=== PATIENT | female | born 1975 | race American Indian/Alaskan Native ===

== ENCOUNTER 2017-05-08 17:19 | Emergency (ER) | payer OTHER ==
[2017-05-08] MEDS ORDERED: NORCO 5/325 PO ONE (19:14)
--- NOTE | 2017-05-08 19:14 | Emergency Department Report ---
Chief Complaint: Dental/Oral Stated Complaint: BROOKEN TOOTH Time Seen by Provider: 05/08/17 19:13 - HPI History of Present Illness: He is a 42-year-old Female who is presenting with right-sided tooth pain and facial swelling. Patient has had pain for the last several days there appears to be an abscess in the right upper gums near the molars with pain on palpation of the teeth - Exam Vital Signs: Vital Signs 05/08/17 17:20 Temperature 98.9 F Pulse Rate 88 Respiratory 18 Rate Blood Pressure 129/92 O2 Sat by Pulse 99 Oximetry MSE screening note: Focused history and physical exam performed. Due to findings the following was ordered: ED Disposition for MSE Condition: Stable Referrals: PRIMARY CARE, [Primary Care Provider] - 3-5 Days
[2017-05-08] MEDS ORDERED: VEETIDS PO ONE (19:15)
[2017-05-08] MEDS ORDERED: MOTRIN PO ONE (19:15)
--- NOTE | 2017-05-08 19:42 | Emergency Department Report ---
ED ENT HPI - General Chief complaint: Dental/Oral Stated complaint: BROOKEN TOOTH Time Seen by Provider: 05/08/17 19:13 Source: patient Mode of arrival: Ambulatory Limitations: No Limitations - History of Present Illness Initial comments: tootache x 2 week hx of infected dental carries state gum swelling pain with hot and cold stimuli, pt is tolerating po intake without symptoms MD complaint: tooth pain Onset/Timin -: Gradual, week(s) Location: tooth # Severity scale (0 -10): 4 Quality: aching Consistency: constant Improves with: none Worsens with: other (hot and cold sensation) Context- Dental: history of dental caries Associated Symptoms: gum swelling, toothache. denies: fever, pain with swallowing, sore throat, tinnitus, rhinorrhea - Related Data Previous Rx's Medication Instructions Recorded Last Taken Type Penicillin Vk [Veetids TAB] 250 mg PO QID #40 tablet 05/08/17 Unknown Rx traMADol [Ultram 50 MG tab] 50 mg PO Q6HR PRN #20 tablet 05/08/17 Unknown Rx Allergies Allergy/AdvReac Type Severity Reaction Status Date / Time No Known Allergies Allergy Unverified 05/08/17 17:20 ED Dental HPI - General Chief complaint: Dental/Oral Stated complaint: BROOKEN TOOTH Time Seen by Provider: 05/08/17 19:13 Source: patient Mode of arrival: Ambulatory Limitations: No Limitations - Related Data Previous Rx's Medication Instructions Recorded Last Taken Type Penicillin Vk [Veetids TAB] 250 mg PO QID #40 tablet 05/08/17 Unknown Rx traMADol [Ultram 50 MG tab] 50 mg PO Q6HR PRN #20 tablet 05/08/17 Unknown Rx Allergies Allergy/AdvReac Type Severity Reaction Status Date / Time No Known Allergies Allergy Unverified 05/08/17 17:20 ED Review of Systems ROS: Stated complaint: BROOKEN TOOTH Other details as noted in HPI Constitutional: denies: chills, fever Eyes: denies: eye pain, eye discharge, vision change ENT: dental pain Respiratory: denies: cough, shortness of breath, wheezing Cardiovascular: denies: chest pain, palpitations Endocrine: no symptoms reported Gastrointestinal: denies: abdominal pain, nausea, diarrhea Genitourinary: denies: urgency, dysuria, discharge Musculoskeletal: denies: back pain, joint swelling, arthralgia Skin: denies: rash, lesions Neurological: denies: headache, weakness, paresthesias Psychiatric: denies: anxiety, depression Hematological/Lymphatic: denies: easy bleeding, easy bruising ED Past Medical Hx - Past Medical History Previous Medical History?: No - Surgical History Past Surgical History?: No - Social History Smoking Status: Never Smoker Substance Use Type: None - Medications Home Medications: Home Medications Medication Instructions Recorded Confirmed Last Taken Type Penicillin Vk [Veetids TAB] 250 mg PO QID #40 tablet 05/08/17 Unknown Rx traMADol [Ultram 50 MG tab] 50 mg PO Q6HR PRN #20 tablet 05/08/17 Unknown Rx ED Physical Exam - General Limitations: No Limitations General appearance: alert, in no apparent distress - Head Head exam: Present: atraumatic, normocephalic - Eye Eye exam: Present: normal appearance - Expanded ENT Exam Expanded Ear exam: Present: normal external inspection Mouth exam: Present: normal external inspection Teeth exam: Present: dental caries, dental tenderness # (29 mild gum swell no trismus uvula midline no stidor no ear pain no facial pain ) Throat exam: Negative: tonsillomegaly - Neck Neck exam: Present: normal inspection, full ROM. Absent: lymphadenopathy, thyromegaly - Respiratory Respiratory exam: Present: normal lung sounds bilaterally. Absent: respiratory distress - Cardiovascular Cardiovascular Exam: Present: regular rate, normal rhythm. Absent: systolic murmur, diastolic murmur, rubs, gallop - GI/Abdominal GI/Abdominal exam: Present: soft, normal bowel sounds - Extremities Exam Extremities exam: Present: normal inspection - Back Exam Back exam: Present: normal inspection - Neurological Exam Neurological exam: Present: alert, oriented X3 - Psychiatric Psychiatric exam: Present: normal affect, normal mood ED Course Vital Signs 05/08/17 05/08/17 17:20 19:36 Temperature 98.9 F Pulse Rate 88 Respiratory 18 18 Rate Blood Pressure 129/92 O2 Sat by Pulse 99 Oximetry ED Medical Decision Making - Medical Decision Making pt presensts for recurrent infected dental carries with small abscess no facial swelling no trismus mild gum swelling pt is tolerating po intake without difficulty, plan, pcn vk, tramdol, follow up dentist will call tomorrow to setu appointment, pt verbalize agreement understanding of discharge plan. Critical care attestation.: If time is entered above; I have spent that time in minutes in the direct care of this critically ill patient, excluding procedure time. ED Disposition Clinical Impression: Dental abscess, Infected dental carries Disposition: TO HOME OR SELFCARE Is pt being admited?: No Does the pt Need Aspirin: No Condition: Good Instructions: Dental Caries (ED), Dental Abscess (ED) Additional Instructions: [facility] [phone] Prescriptions: Penicillin Vk [Veetids TAB] 250 mg PO QID #40 tablet traMADol [Ultram 50 MG tab] 50 mg PO Q6HR PRN #20 tablet PRN Reason: Pain Referrals: PRIMARY CARE,MD [Primary Care Provider] - 3-5 Days Forms: Work/School Release Form(ED) Time of Disposition: 19:44
[2017-05-08 19:53] VITALS: BP 157/85
== END 2017-05-08 20:00 | disposition home or self-care (01) ==
LOC: ED 17:19
DX: K04.7 Periapical abscess without sinus (principal)
CPT/HCPCS: 99282

== ENCOUNTER 2017-06-29 23:04 | Emergency (ER) | payer SELFPAY ==
[2017-06-29 23:28] VITALS: BP 114/74
[2017-06-29] MEDS ORDERED: PROVENTIL IH ONE (23:28)
[2017-06-29] MEDS ORDERED: TORADOL IM ONE (23:30)
--- NOTE | 2017-06-30 00:30 | XRay Report ---
FINAL REPORT EXAM: XR CHEST ROUTINE 2V HISTORY: cough TECHNIQUE: PA and lateral views of the chest were submitted. FINDINGS: The heart size and mediastinum appear normal. The lungs are clear. Pleural fluid is not seen. The bones and soft tissues are well maintained. IMPRESSION: No active chest disease.
[2017-06-30] MEDS ORDERED: ZOFRAN IM ONE (03:45)
[2017-06-30] MEDS ORDERED: NACL 0.9% 1000 ML 1,000 ML ONE (04:01)
[2017-06-30] MEDS ORDERED: NACL 0.9% 1000 ML 1,000 ML IV ONE (04:20)
[2017-06-30 04:24] LABS: Basophils % (Auto) 0.5 % (0.0-1.8); Eosinophils # (Auto) 0.2 K/mm3 (0.0-0.4); Eosinophils % (Auto) 3.3 % (0.0-4.3); Hematocrit 33.3 % (30.3-42.9); Hemoglobin 10.8 gm/dl (10.1-14.3); Lymphocytes # (Auto) 2.6 K/mm3 (1.2-5.4); Lymphocytes % (Auto) 36.8 % (13.4-35.0); Mean Corpuscular HGB Conc 32 % (30-34); Mean Corpuscular Volume 78 fl (79-97); Monocytes # (Auto) 0.4 K/mm3 (0.0-0.8); Monocytes % (Auto) 6.3 % (0.0-7.3); Platelet Count 274 K/mm3 (140-440); Red Blood Count 4.25 M/mm3 (3.65-5.03); Red Cell Distribution Width 16.3 % (13.2-15.2)
[2017-06-30 04:27] LABS: Mean Corpuscular Hemoglobin 25 pg (28-32)
[2017-06-30 04:43] LABS: BUN/Creatinine Ratio 18; Blood Urea Nitrogen 11 mg/dL (7-17); Calcium 9.3 mg/dL (8.4-10.2); Hemolysis Index 10
[2017-06-30 14:42] LABS: Bilirubin,Urine NEG (Negative); Blood,Urine LG (Negative); Calcium Oxalate Crystals,Urine 1+; Color,Urine Yellow (Yellow); Mucus,Urine 3+ /HPF; Nitrite,Urine NEG (Negative); Urobilinogen,Urine < 2.0 mg/dL (<2.0)
== END 2017-06-30 07:45 | disposition left against medical advice (07) ==
LOC: ED 23:04
DX: R07.9 Chest pain, unspecified (principal); R53.1 Weakness; Z53.21 Procedure and treatment not carried out due to patient leaving prior to being seen by health care provider
CPT/HCPCS: 36415; 71046; 80048; 81001; 85025; 87400; 93005; 93010; J1885; J2405; J7030

== ENCOUNTER 2017-10-17 07:42 | Emergency (ER) | payer SELFPAY ==
--- NOTE | 2017-10-17 08:21 | Emergency Department Report ---
HPI - General Chief Complaint: Sore Throat Time Seen by Provider: 10/17/17 08:20 - HPI HPI: Patient here reports that she is sore throats, fever and chills, swelling to her neck on both sides. Positive headache frontally. This has been going on for 2 days. Denies any cough, difficulty breathing, drooling, shortness of breath or chest pain. No dizziness or blurred vision. Pain is worse with swallowing and. Pain is constant. Unknown cause. No alleviating factors. Pain is 5 out of 10. Pain is achy. Denies any exposure to anyone with similar incidents. She states that she was sent home from work yesterday. No medication taken. ED Past Medical Hx - Past Medical History Previous Medical History?: No - Surgical History Past Surgical History?: Yes Additional Surgical History: Tubal Ligation - Family History Family history: hypertension - Social History Smoking Status: Never Smoker Substance Use Type: None Other Social History: Single and employed - Medications Home Medications: Home Medications Medication Instructions Recorded Confirmed Last Taken Type Penicillin Vk [Veetids TAB] 250 mg PO QID #40 tablet 05/08/17 Unknown Rx traMADol [Ultram 50 MG tab] 50 mg PO Q6HR PRN #20 tablet 05/08/17 Unknown Rx Ibuprofen [Motrin 800 MG tab] 800 mg PO Q8H PRN #15 tablet 10/17/17 Unknown Rx ED Review of Systems ROS: Stated complaint: SORE THROAT Other details as noted in HPI Constitutional: chills, fever, malaise Eyes: denies: eye pain, eye discharge, vision change ENT: throat pain. denies: ear pain, dental pain, hearing loss, epistaxis, congestion Respiratory: denies: cough, shortness of breath, SOB with exertion, SOB at rest , stridor, wheezing Cardiovascular: denies: chest pain, palpitations, edema, syncope Gastrointestinal: denies: abdominal pain, nausea, vomiting, diarrhea Musculoskeletal: denies: back pain, joint swelling, arthralgia Skin: denies: rash, lesions, pruritus Neurological: headache. denies: weakness, numbness, paresthesias, abnormal gait , vertigo Hematological/Lymphatic: swollen glands Physical Exam - Physical Exam Vital Signs: Vital Signs 10/17/17 08:03 Temperature 100.2 F H Pulse Rate 110 H Blood Pressure 120/78 O2 Sat by Pulse 98 Oximetry General: This is a 42-year-old female well-nourished well-developed in no acute distress. Physical Exam: Head: Normocephalic, atraumatic, no abrasion, no bruising and no contusion. Eyes: Biateral pupils equal and reactive to light, bilateral EOM intact.. Bilateral conjunctival and sclera without injection, normal accommodation. No nystagmus Mouth: Mucosa moist, no drooling, positive pharyngeal exudate or erythema. No peritonsillar abscesses. Uvula is midline and oral airways patent. Speech is clear Ears: Bilateral TMs pearly briseno ,Bilateral EAC without any redness swelling or drainage. No mastoid bone tenderness Nose: Bilateral nasal mucosa normal ,Maxillary and frontal sinuses non-tender to palpate. Neck: Supple, positive anterior chain Cervical adenopathy, full range of motion and no C-spine tenderness. No swelling or tracheal deviation normal reflexes Cardiovascular: S1, S2. Tachycardic at 110 ,Regular rhythm. No murmur. Capillary refill is less then 3 seconds. Lungs: Clear to auscultate bilaterally. No rhonchi, wheezes or rales. No chest wall tenderness. No chest contusion. No bruising to chest. Abdomen: Non-tender to palpate in all quadrants, no guarding or rebound tenderness, positive bowel sounds in all quadrants. Extremities: No clubbing, cyanosis or edema. +2 pulses. No neurovascular compromise Skin: Clean, dry and intact. No rash or lesions. Neurological: GCS at 15, Pt is alert and oriented 3 speech is clear . Normal gait. Psych: Normal mood and behavior ED Course Vital Signs 10/17/17 08:03 Temperature 100.2 F H Pulse Rate 110 H Blood Pressure 120/78 O2 Sat by Pulse 98 Oximetry Vital Signs 10/17/17 10/17/17 08:03 08:51 Temperature 100.2 F H 100.4 F H Pulse Rate 110 H 107 H Respiratory 20 Rate Blood Pressure 120/78 Blood Pressure 116/81 [Left] O2 Sat by Pulse 98 100 Oximetry - Reevaluation(s) Reevaluation #1: 10/17/17 08:51 Patient received Bicillin 1.2 million units IM in emergency room to Street exudative pharyngitis.. She also received Motrin 800 mg one tablet by mouth and Reynolds 7.5/325 mg one tablet by mouth for pain which relieved her pain. Patient also given Deltasone 6 mgo by mouth for mild swelling to oropharynx. Patient is stable feeling better. Able to tolerate liquids without any difficulties. ED Medical Decision Making - Medical Decision Making ED course: Diagnosis: 1: Exudative pharyngitis- siore throat better 2:fever in adults- stable Headache-Resolved -Basis since her criteria patient with oropharynx, erythema with exudate, enlarge cervical lymp nodes, headache and fever with absence of cough patient with strep. She was treated with Bicillin LA 1.2 million units emergency room times one dose without any adverse reaction. Motrin 800 mg by mouth and Reynolds 7.5/325 mg by mouth given for pain with subsequent pain. Patient was also given Deltasone 60 mg by mouth for mild swelling to her throat. Patient states that she is feeling better overall. -Discharged prescription for Motrin -Instructed her to gargle warm salt water Patient discharged from emergency room in stable condition with family with prescription for Motrin and to follow up with her primary care physician on Saturday. She was understanding of discharge diagnosis, instruction instruction and treatment plan. - Differential Diagnosis [employer], exudative pharyngitis, allergic rhinitis, URI, sinusitis Critical care attestation.: If time is entered above; I have spent that time in minutes in the direct care of this critically ill patient, excluding procedure time. ED Disposition Clinical Impression: Exudative pharyngitis, Fever in adult, Enlarged lymph node in neck Disposition: DC-01 TO HOME OR SELFCARE Is pt being admited?: No Does the pt Need Aspirin: No Condition: Stable Instructions: Strep Throat (ED), Fever in Adults (ED), Lymphadenopathy (ED) Additional Instructions: You're given Bicillin injection which is a long acting penicillin. Usually antibiotic starts taking effect and 4 days. You will continue to have sore throat so take Motrin as prescribed and gargle warm salt water and he should see your sore throat gradually resolving over 4 days. Motrin will also help with fever Increase her fluid intake and avoid spicy food and hot beverages Follow-up the primary care physician in 5 days Prescriptions: Ibuprofen [Motrin 800 MG tab] 800 mg PO Q8H PRN #15 tablet PRN Reason: sore throat and fever Referrals: PRIMARY CARE, [Primary Care Provider] - 10/22/17 Forms: Accompanied Note, Work/School Release Form(ED)
[2017-10-17] MEDS ORDERED: NORCO 7.5/325 PO ONE (08:24)
[2017-10-17] MEDS ORDERED: MOTRIN PO ONE (08:24)
[2017-10-17] MEDS ORDERED: DELTASONE PO ONE (08:24)
[2017-10-17] MEDS ORDERED: BICILLIN L-A IM ONE (08:25)
[2017-10-17 08:52] VITALS: BP 116/81
== END 2017-10-17 09:15 | disposition home or self-care (01) ==
LOC: ED 07:42
DX: J02.9 Acute pharyngitis, unspecified (principal); R59.0 Localized enlarged lymph nodes
CPT/HCPCS: 96372; 99282; J0561; J7512

== ENCOUNTER 2018-01-23 11:44 | Emergency (ER) | payer OTHER ==
[2018-01-23 11:51] VITALS: BP 129/81
--- NOTE | 2018-01-23 12:53 | Emergency Department Report ---
ED Abdominal Pain HPI - General Chief Complaint: Abdominal Pain Stated Complaint: ABD PAIN Time Seen by Provider: 01/23/18 12:20 Source: family, RN/MD Mode of arrival: Ambulatory Limitations: No Limitations - History of Present Illness Initial Comments: Patient reports lower abdominal pain with some nausea and that she has been seen in [place] last week and had CT scan with IV contrast and they told her that everything was fine. He will have an abdominal pain and nausea with no relief with [id number] medication. She denies any vomiting, vaginal bleeding or discharge. Denies any urinary symptoms. Negative back pain. Last menstrual cycle was 01/13/2018. Pain is 8/10 in cramp and no alleviating or exacerbating factors. Denies any diarrhea or constipation. Patient says she does not have a primary care doctor because she just moved to town and his churches trying to help her get some insurance. MD Complaint: abdominal pain (nausea alone) Onset/Timin -: week(s) Location: suprapubic Radiation: none Migration to: no migration Severity: severe Severity scale (0 -10): 8 Quality: cramping Consistency: intermittent Worsens With: nothing Context: other (unknown) Associated Symptoms: nausea. denies: vomiting, diarrhea, fever, chills, constipation, dysuria, hematemesis, hematochezia, melena, hematuria, anorexia, syncope - Related Data LMP Date: 01/13/18 Previous Rx's Medication Instructions Recorded Last Taken Type Penicillin Vk [Veetids TAB] 250 mg PO QID #40 tablet 05/08/17 Unknown Rx traMADol [Ultram 50 MG tab] 50 mg PO Q6HR PRN #20 tablet 05/08/17 Unknown Rx Ibuprofen [Motrin 800 MG tab] 800 mg PO Q8H PRN #15 tablet 10/17/17 Unknown Rx Naproxen [Naprosyn] 500 mg PO Q12H PRN #20 tablet 01/23/18 Unknown Rx Ondansetron [Zofran Odt] 4 mg PO Q8H PRN #20 tab.rapdis 01/23/18 Unknown Rx Allergies Allergy/AdvReac Type Severity Reaction Status Date / Time No Known Allergies Allergy Unverified 05/08/17 17:20 ED Review of Systems ROS: Stated complaint: ABD PAIN Other details as noted in HPI Constitutional: denies: chills, fever Eyes: denies: eye discharge ENT: denies: ear pain, throat pain, congestion Respiratory: denies: cough, shortness of breath, SOB with exertion, SOB at rest , stridor, wheezing Cardiovascular: denies: chest pain, palpitations, edema, syncope Gastrointestinal: abdominal pain, nausea. denies: vomiting, diarrhea, constipation, hematemesis, melena, hematochezia Genitourinary: denies: urgency, dysuria, frequency, hematuria, discharge, abnormal menses, dyspareunia Musculoskeletal: denies: back pain, joint swelling, arthralgia, myalgia Skin: denies: rash, lesions Neurological: denies: headache, weakness ED Past Medical Hx - Past Medical History Previous Medical History?: No - Surgical History Past Surgical History?: Yes Additional Surgical History: Tubal Ligation - Family History Family history: hypertension - Social History Smoking Status: Never Smoker Substance Use Type: Marijuana - Medications Home Medications: Home Medications Medication Instructions Recorded Confirmed Last Taken Type Penicillin Vk [Veetids TAB] 250 mg PO QID #40 tablet 05/08/17 Unknown Rx traMADol [Ultram 50 MG tab] 50 mg PO Q6HR PRN #20 tablet 05/08/17 Unknown Rx Ibuprofen [Motrin 800 MG tab] 800 mg PO Q8H PRN #15 tablet 10/17/17 Unknown Rx Naproxen [Naprosyn] 500 mg PO Q12H PRN #20 tablet 01/23/18 Unknown Rx Ondansetron [Zofran Odt] 4 mg PO Q8H PRN #20 tab.rapdis 01/23/18 Unknown Rx ED Physical Exam - General Limitations: No Limitations General appearance: alert, in no apparent distress - Head Head exam: Present: atraumatic, normocephalic, normal inspection - Eye Eye exam: Present: normal appearance, PERRL, EOMI Pupils: Present: normal accommodation - ENT ENT exam: Present: normal exam, normal orophraynx, mucous membranes moist, TM's normal bilaterally, normal external ear exam - Neck Neck exam: Present: normal inspection, full ROM. Absent: tenderness, lymphadenopathy - Respiratory Respiratory exam: Present: normal lung sounds bilaterally. Absent: respiratory distress, chest wall tenderness - Cardiovascular Cardiovascular Exam: Present: regular rate, normal rhythm, normal heart sounds. Absent: systolic murmur, diastolic murmur - GI/Abdominal GI/Abdominal exam: Present: soft, tenderness (minimal suprapubic tenderness), normal bowel sounds. Absent: distended, guarding, rebound, rigid, organomegaly , mass - Extremities Exam Extremities exam: Present: normal inspection, full ROM, normal capillary refill , other (No cce. + 2 pulses in all extremities, no neurovascular compromise). Absent: tenderness, pedal edema, joint swelling, calf tenderness - Back Exam Back exam: Present: normal inspection, full ROM, other (ambulates without any difficulties). Absent: tenderness, CVA tenderness (R), CVA tenderness (L), muscle spasm, paraspinal tenderness, vertebral tenderness, rash noted - Neurological Exam Neurological exam: Present: alert, oriented X3, normal gait - Psychiatric Psychiatric exam: Present: normal affect, normal mood - Skin Skin exam: Present: warm, dry, intact, normal color. Absent: rash ED Course Vital Signs 01/23/18 01/23/18 01/23/18 11:48 13:07 13:37 Temperature 97.9 F Pulse Rate 69 Respiratory 16 18 18 Rate Blood Pressure 129/81 O2 Sat by Pulse 100 Oximetry - Reevaluation(s) Reevaluation #1: 01/23/18 16:13 Patient was given Toradol 30 mg IM and Zofran 8 mg ODT which relieved her nausea and abdominal cramping. She was found to be eating chips and other cookies and drinking soda in the room. ED Medical Decision Making - Lab Data Result diagrams: 01/23/18 12:57 01/23/18 12:57 Lab Results 01/23/18 01/23/18 01/23/18 Range/Units 12:30 12:57 12:57 WBC 6.5 (4.5-11.0) K/mm3 RBC 4.60 (3.65-5.03) M/mm3 Hgb 11.2 (10.1-14.3) gm/dl Hct 35.0 (30.3-42.9) % MCV 76 L (79-97) fl MCH 24 L (28-32) pg MCHC 32 (30-34) % RDW 17.5 H (13.2-15.2) % Plt Count 314 (140-440) K/mm3 Lymph % (Auto) 36.3 H (13.4-35.0) % [place] % (Auto) 8.3 H (0.0-7.3) % Eos % (Auto) 1.7 (0.0-4.3) % Baso % (Auto) 0.6 (0.0-1.8) % Lymph # 2.4 (1.2-5.4) K/mm3 [place] # 0.5 (0.0-0.8) K/mm3 Eos # 0.1 (0.0-0.4) K/mm3 Baso # 0.0 (0.0-0.1) K/mm3 Seg Neutrophils % 53.1 (40.0-70.0) % Seg Neutrophils # 3.4 (1.8-7.7) K/mm3 Sodium 139 (137-145) mmol/L Potassium 3.9 (3.6-5.0) mmol/L Chloride 104.9 (98-107) mmol/L Carbon Dioxide 22 (22-30) mmol/L Anion Gap 16 mmol/L BUN 8 (7-17) mg/dL Creatinine 0.6 L (0.7-1.2) mg/dL Estimated GFR > 60 ml/min BUN/Creatinine Ratio 13 % Glucose 78 (65-100) mg/dL Calcium 9.1 (8.4-10.2) mg/dL Total Bilirubin 0.20 (0.1-1.2) mg/dL AST 19 (5-40) units/L ALT 16 (7-56) units/L Alkaline Phosphatase 46 (35-129) units/L Total Protein 7.0 (6.3-8.2) g/dL Albumin 4.2 (3.9-5) g/dL Albumin/Globulin Ratio 1.5 % Lipase 36 (13-60) units/L Urine Color Yellow (Yellow) Urine Turbidity Clear (Clear) Urine pH 6.0 (5.0-7.0) Ur Specific [place] 1.023 (1.003-1.030) Urine Protein <15 mg/dl (Negative) mg/dL Urine Glucose (UA) Neg (Negative) mg/dL Urine Ketones Neg (Negative) mg/dL Urine Blood Neg (Negative) Urine Nitrite Neg (Negative) Urine Bilirubin Neg (Negative) Urine Urobilinogen < 2.0 (<2.0) mg/dL Ur Leukocyte Esterase Neg (Negative) Urine WBC (Auto) 1.0 (0.0-6.0) /HPF Urine RBC (Auto) 5.0 (0.0-6.0) /HPF U Epithel Cells (Auto) 3.0 (0-13.0) /HPF Urine Mucus Few /HPF Urine HCG, Qual Negative (Negative) - Radiology Data Radiology results: report reviewed Ultrasound transabdominal, transvaginal and pelvic dictated by radiologist and report reviewed by myself. Please see details in report below. Patient: CORRIE AHN MR#: [id number] : 1975 Acct:[id number] Age/Sex: 42 / F ADM Date: 01/23/18 Loc: ED Attending Dr: Ordering Physician: JUANITA ARAUJO Date of Service: 01/23/18 Procedure(s): US transvaginal Accession Number(s): [id number] cc: JUANITA ARAUJO ULTRASOUND PELVIC COMPLETE ULTRASOUND TRANSVAGINAL HISTORY: Pelvic pain. COMPARISON: None. TECHNIQUE: Transabdominal and transvaginal ultrasound with color doppler interrogation. FINDINGS: Uterus: There is. The uterus measures 11 x 5 x 8 cm. A right lateral wall fibroid measures 3.0 cm. A left lateral wall fibroid measures 3.6 cm. Normal cervix. Endometrium: The endometrial stripe measures 1.5 cm. Right ovary: Normal. Left ovary: Normal. No pelvic fluid or mass is identified. Normal color doppler interrogation. IMPRESSION: Uterine fibroid disease. The endometrium measures 15 mm. Transcribed By: TTR Dictated By: SALVADOR ROJAS JR, MD Electronically Authenticated By: SALVADOR ROJAS JR, MD Signed Date/Time: 01/23/18 1509 DD/ 1507 TD/TT: 01/23/18 1509 Patient: CORRIE AHN MR#: [id number] : 1975 Acct:[id number] Age/Sex: 42 / F ADM Date: 01/23/18 Loc: ED Attending Dr: Ordering Physician: JUANITA ARAUJO Date of Service: 01/23/18 Procedure(s): US pelvic complete Accession Number(s): [id number] cc: JUANITA ARAUJO ULTRASOUND PELVIC COMPLETE ULTRASOUND TRANSVAGINAL HISTORY: Pelvic pain. COMPARISON: None. TECHNIQUE: Transabdominal and transvaginal ultrasound with color doppler interrogation. FINDINGS: Uterus: There is. The uterus measures 11 x 5 x 8 cm. A right lateral wall fibroid measures 3.0 cm. A left lateral wall fibroid measures 3.6 cm. Normal cervix. Endometrium: The endometrial stripe measures 1.5 cm. Right ovary: Normal. Left ovary: Normal. No pelvic fluid or mass is identified. Normal color doppler interrogation. IMPRESSION: Uterine fibroid disease. The endometrium measures 15 mm. Transcribed By: TTR Dictated By: SALVADOR ROJAS JR, MD Electronically Authenticated By: SALVADOR ROJAS JR, MD Signed Date/Time: 01/23/18 150 DD/ 1507 TD/TT: 01/23/18 1509 Patient: CORRIE AHN MR#: [id number] : 1975 Acct:[id number] Age/Sex: 42 / F ADM Date: 01/23/18 Loc: ED Attending Dr: Ordering Physician: JUANITA ARAUJO Date of Service: 01/23/18 Procedure(s): US abdomen complete Accession Number(s): [id number] cc: JUANITA ARAUJO ULTRASOUND ABDOMEN COMPLETE: TECHNIQUE: Transabdominal ultrasound with color Doppler interrogation. HISTORY: abdominal pain. COMPARISON: none. FINDINGS: LIVER: Normal. BILIARY SYSTEM: Normal. PANCREAS: Normal. SPLEEN: Normal. KIDNEYS: Normal. AORTA/IVC: Normal. ASCITES: None. IMPRESSION: Unremarkable exam. Transcribed By: TTR Dictated By: SALVADOR ROJAS JR, MD Electronically Authenticated By: SALVADOR ROJAS JR, MD Signed Date/Time: 01/23/18 151 DD/ 1510 TD/TT: 01/23/18 151 - Medical Decision Making This is a 42-year-old female here report abdominal pain that has been ongoing. She says she had a CT scan with IV contrast in [place] one week ago and they did not find anything. She says she is still having abdominal pain and a little bit of nausea. She is not having any vaginal bleeding or urinary symptoms. Patient was seen and examined by myself and physical exam is normal except she has mild tenderness to her pelvic area on both sides. All other physical findings are normal. Patient had ultrasound of abdomen, complete which was normal finding in and she had ultrasound pelvic completed and transvaginal ultrasound with normal ovaries and she has fibroid disease. CBC stable except for minor and CMP is stable and urinalysis normal with negative test. I discussed ultrasound and CBC and other laboratory results the patient and she voiced understanding. Diagnosis and treatment plan discussed that she was understanding. Patient was given 1 L of normal saline in the emergency room, Toradol 30 mg IM and Zofran 8 mg ODT which relieved her abdominal pain and nausea has been relief. Patient is able to tolerate oral ice water in the emergency room. I discussed the patient that she needs to follow up with OB/ CVICU RN and she says she does not have any insurance I told her to follow up with Dr. Salvador Woo at [facility] and also primary care at [facility]. Patient discharged home with prescription for naproxen and Zofran for pain and nausea. Vital signs are stable she is afebrile and pain is controlled. Critical care attestation.: If time is entered above; I have spent that time in minutes in the direct care of this critically ill patient, excluding procedure time. ED Disposition Clinical Impression: Nausea alone Abdominal pain Qualifiers: Abdominal location: lower abdomen, unspecified Qualified Code(s): R10.30 - Lower abdominal pain, unspecified Uterine fibroid Qualifiers: Uterine leiomyoma location: unspecified location Qualified Code(s): D25.9 - Leiomyoma of uterus, unspecified Disposition: DC-01 TO HOME OR SELFCARE Is pt being admited?: No Does the pt Need Aspirin: No Condition: Stable Instructions: Uterine Fibroids (ED), Acute Nausea and Vomiting (ED), Abdominal Pain (ED) Additional Instructions: Please follow up with outside Medical Center for [facility] and primary care visits. Call tomorrow to schedule an appointment for well patient visit and also for Pap smear. Take medication for nausea and for pelvic pain as prescribed Increase your fluid intake. If you develop vaginal bleeding in and increase in abdominal pain with nausea and vomiting, return to the emergency room otherwise see [facility] as discussed Prescriptions: Naproxen [Naprosyn] 500 mg PO Q12H PRN #20 tablet PRN Reason: abdominal cramping Ondansetron [Zofran Odt] 4 mg PO Q8H PRN #20 tab.rapdis PRN Reason: Nausea And Vomiting Referrals: PRIMARY CARE, [Primary Care Provider] - 3-5 Days [facility] [Outside] - 3-5 Days SALVADOR WOO MD [Staff Physician] - 3-5 Days Forms: Work/School Release Form(ED)
[2018-01-23 12:54] LABS: Bilirubin,Urine NEG (Negative); Blood,Urine NEG (Negative); Color,Urine Yellow (Yellow); HCG Qualitative,Urine Negative (Negative); Mucus,Urine FEW /HPF; Protein,Urine <15 mg/dL mg/dL (Negative); Urobilinogen,Urine < 2.0 mg/dL (<2.0)
[2018-01-23] MEDS ORDERED: TORADOL IM ONE (12:54)
[2018-01-23] MEDS ORDERED: ZOFRAN ODT PO ONE (12:54)
[2018-01-23 13:18] LABS: Basophils % (Auto) 0.6 % (0.0-1.8); Eosinophils # (Auto) 0.1 K/mm3 (0.0-0.4); Eosinophils % (Auto) 1.7 % (0.0-4.3); Hemoglobin 11.2 gm/dl (10.1-14.3); Lymphocytes # (Auto) 2.4 K/mm3 (1.2-5.4); Lymphocytes % (Auto) 36.3 % (13.4-35.0); Mean Corpuscular HGB Conc 32 % (30-34); Mean Corpuscular Volume 76 fl (79-97); Monocytes # (Auto) 0.5 K/mm3 (0.0-0.8); Monocytes % (Auto) 8.3 % (0.0-7.3); Platelet Count 314 K/mm3 (140-440); Red Cell Distribution Width 17.5 % (13.2-15.2)
[2018-01-23] MEDS ORDERED: NACL 0.9% 1000 ML 1,000 ML IV ONE (13:18)
[2018-01-23 13:21] LABS: Mean Corpuscular Hemoglobin 24 pg (28-32)
[2018-01-23 13:44] LABS: Alanine Aminotransferase 16 units/L (7-56); Albumin 4.2 g/dL (3.9-5); BUN/Creatinine Ratio 13; Blood Urea Nitrogen 8 mg/dL (7-17); Calcium 9.1 mg/dL (8.4-10.2); Hemolysis Index 10; Lipase 36 units/L (13-60)
--- NOTE | 2018-01-23 15:10 | Ultrasound Report ---
ULTRASOUND PELVIC COMPLETE ULTRASOUND TRANSVAGINAL HISTORY: Pelvic pain. COMPARISON: None. TECHNIQUE: Transabdominal and transvaginal ultrasound with color doppler interrogation. FINDINGS: Uterus: There is. The uterus measures 11 x 5 x 8 cm. A right lateral wall fibroid measures 3.0 cm. A left lateral wall fibroid measures 3.6 cm. Normal cervix. Endometrium: The endometrial stripe measures 1.5 cm. Right ovary: Normal. Left ovary: Normal. No pelvic fluid or mass is identified. Normal color doppler interrogation. IMPRESSION: Uterine fibroid disease. The endometrium measures 15 mm.
--- NOTE | 2018-01-23 15:11 | Ultrasound Report ---
ULTRASOUND ABDOMEN COMPLETE: TECHNIQUE: Transabdominal ultrasound with color Doppler interrogation. HISTORY: abdominal pain. COMPARISON: none. FINDINGS: LIVER: Normal. BILIARY SYSTEM: Normal. PANCREAS: Normal. SPLEEN: Normal. KIDNEYS: Normal. AORTA/IVC: Normal. ASCITES: None. IMPRESSION: Unremarkable exam.
== END 2018-01-23 16:17 | disposition home or self-care (01) ==
LOC: ED 11:44
DX: D25.9 Leiomyoma of uterus, unspecified (principal); R11.0 Nausea; F12.10 Cannabis abuse, uncomplicated; Z98.51 Tubal ligation status
CPT/HCPCS: 36415; 76700; 76830; 76856; 80053; 81001; 81025; 83690; 85025; 96372; 99284; J1885; J7030; Q0162

== ENCOUNTER 2018-11-12 16:41 | Emergency (ER) | payer SELFPAY ==
--- NOTE | 2018-11-12 16:58 | Emergency Department Report ---
Blank Doc - Documentation Documentation: This is a 43-year-old female that presents with nausea vomiting, fatigue, and weakness. Stated has been taking Xanax for years but is trying to ween herself off and hasnt taken it for 4 days. This initial assessment/diagnostic orders/clinical plan/treatment(s) is/are subject to change based on patient's health status, clinical progression and re- assessment by fellow clinical providers in the ED. Further treatment and workup at subsequent clinical providers discretion. Patient/guardians urged not to elope from the ED as their condition may be serious if not clinically assessed and managed. Initial orders include: 1- Patient sent to [facility] for further evaluation and treatment 2- labs 3- UA
[2018-11-12 17:20] LABS: Basophils % (Auto) 0.5 % (0.0-1.8); Eosinophils # (Auto) 0.3 K/mm3 (0.0-0.4); Eosinophils % (Auto) 5.5 % (0.0-4.3); Hematocrit 30.9 % (30.3-42.9); Hemoglobin 9.8 gm/dl (10.1-14.3); Mean Corpuscular HGB Conc 32 % (30-34); Mean Corpuscular Volume 72 fl (79-97); Monocytes # (Auto) 0.6 K/mm3 (0.0-0.8); Monocytes % (Auto) 13.6 % (0.0-7.3); Platelet Count 306 K/mm3 (140-440); Red Blood Count 4.28 M/mm3 (3.65-5.03); Red Cell Distribution Width 17.9 % (13.2-15.2)
[2018-11-12 17:44] LABS: Alanine Aminotransferase 13 units/L (7-56); Albumin 3.8 g/dL (3.9-5); BUN/Creatinine Ratio 10; Blood Urea Nitrogen 5 mg/dL (7-17); Calcium 9.3 mg/dL (8.4-10.2); Hemolysis Index 2
[2018-11-12] MEDS ORDERED: NACL 0.9% 1000 ML 1,000 ML IV ONE (18:18)
[2018-11-12] MEDS ORDERED: IBUPROFEN PO ONE (18:57)
[2018-11-12 19:08] LABS: Bilirubin,Urine NEG (Negative); Blood,Urine SM (Negative); Color,Urine Yellow (Yellow); Mucus,Urine 1+ /HPF; Protein,Urine <15 mg/dL mg/dL (Negative); Urobilinogen,Urine < 2.0 mg/dL (<2.0)
[2018-11-12 19:10] LABS: Amphetamine Screen,Urine PRESUMPTIVE NEGATIVE; Cocaine Screen,Urine PRESUMPTIVE NEGATIVE; Methadone Screen,Urine PRESUMPTIVE NEGATIVE; Opiate Screen,Urine PRESUMPTIVE NEGATIVE
--- NOTE | 2018-11-12 19:28 | Emergency Department Report ---
ED Medical Clearance HPI - General Chief complaint: Medical Clearance Stated complaint: N/V BLOOD Time Seen by Provider: 11/12/18 16:57 Source: patient Mode of arrival: Ambulatory - History of Present Illness Initial comments: 43-year-old -[place] female presents to the ED with the chief complaint that she desires detox for benzodiazepine abuse. Patient states she has been using Xanax, for the past 8 years. Has been without Xanax for at least 4 days. Bring some mild abdominal discomfort, nausea, diarrhea, no fever chills or night sweats. She was seen at [facility] yesterday and treated for GI symptoms, but she stated that they didn't offer her any help for benzodiazepine withdrawal, and her desire to get detox. Home medications: Previous Rx's Medication Instructions Recorded Last Taken Type Penicillin Vk [Veetids TAB] 250 mg PO QID #40 tablet 05/08/17 Unknown Rx traMADol [Ultram 50 MG tab] 50 mg PO Q6HR PRN #20 tablet 05/08/17 Unknown Rx Ibuprofen [Motrin 800 MG tab] 800 mg PO Q8H PRN #15 tablet 10/17/17 Unknown Rx Naproxen [Naprosyn] 500 mg PO Q12H PRN #20 tablet 01/23/18 Unknown Rx Ondansetron [Zofran Odt] 4 mg PO Q8H PRN #20 tab.rapdis 01/23/18 Unknown Rx Allergies/Adverse reactions: Allergies Allergy/AdvReac Type Severity Reaction Status Date / Time No Known Allergies Allergy Verified 11/12/18 16:47 ED Review of Systems ROS: Stated complaint: N/V BLOOD Other details as noted in HPI Comment: All other systems reviewed and negative Gastrointestinal: denies: nausea, vomiting Genitourinary: denies: urgency, dysuria Skin: denies: rash Neurological: denies: headache Psychiatric: anxiety. denies: depression, auditory hallucinations, visual hallucinations, homicidal thoughts ED Past Medical Hx - Past Medical History Previous Medical History?: No - Surgical History Additional Surgical History: Tubal Ligation - Social History Smoking Status: Never Smoker Substance Use Type: Alcohol, Marijuana - Medications Home Medications: Home Medications Medication Instructions Recorded Confirmed Last Taken Type Penicillin Vk [Veetids TAB] 250 mg PO QID #40 tablet 05/08/17 Unknown Rx traMADol [Ultram 50 MG tab] 50 mg PO Q6HR PRN #20 tablet 05/08/17 Unknown Rx Ibuprofen [Motrin 800 MG tab] 800 mg PO Q8H PRN #15 tablet 10/17/17 Unknown Rx Naproxen [Naprosyn] 500 mg PO Q12H PRN #20 tablet 01/23/18 Unknown Rx Ondansetron [Zofran Odt] 4 mg PO Q8H PRN #20 tab.rapdis 01/23/18 Unknown Rx ED Physical Exam - General Limitations: No Limitations General appearance: alert, in no apparent distress - Head Head exam: Present: atraumatic, normocephalic - Eye Eye exam: Present: normal appearance, PERRL - ENT ENT exam: Present: normal exam, normal orophraynx - Neck Neck exam: Present: normal inspection - Respiratory Respiratory exam: Present: normal lung sounds bilaterally - Cardiovascular Cardiovascular Exam: Present: regular rate, normal rhythm - GI/Abdominal GI/Abdominal exam: Present: soft, normal bowel sounds - Extremities Exam Extremities exam: Present: normal inspection - Back Exam Back exam: Present: normal inspection ED Course Vital Signs 11/12/18 11/12/18 11/12/18 16:57 17:49 18:01 Temperature 98.1 F Pulse Rate 92 H 96 H Respiratory 18 20 18 Rate Blood Pressure 123/86 Blood Pressure 120/77 [Left] O2 Sat by Pulse 99 99 99 Oximetry ED Medical Decision Making - Lab Data Result diagrams: 11/12/18 17:02 11/12/18 17:02 - EKG Data -: EKG Interpreted by Fl EKG shows normal: sinus rhythm Rate: normal - EKG Data When compared to previous EKG there are: no significant change - Medical Decision Making Patient evaluated by mental health, we'll recommend outpatient detox, and gave patient referral to several outpatient facilities, she agrees with the plan. She promises to follow up with his outpatient treatment. She will return to ED she started having fevers, chills or night sweats. For any further treatment that she desires. ED Disposition Clinical Impression: Benzodiazepine dependence Disposition: DC-01 TO HOME OR SELFCARE Is pt being admited?: No Does the pt Need Aspirin: No Condition: Stable Instructions: Benzodiazepine Abuse (ED) Referrals: VEL MCLEAN MD [Primary Care Provider] - 3-5 Days
[2018-11-12 20:25] LABS: Benzodiazepines Screen,Urine PRESUMPTIVE POSITIVE; Cannabinoid Screen,Urine PRESUMPTIVE POSITIVE
[2018-11-12 21:12] VITALS: BP 114/76
== END 2018-11-12 21:13 | disposition home or self-care (01) ==
LOC: ED 16:41
DX: F13.20 Sedative, hypnotic or anxiolytic dependence, uncomplicated (principal); F12.90 Cannabis use, unspecified, uncomplicated; Z98.51 Tubal ligation status; Z79.899 Other long term (current) drug therapy
CPT/HCPCS: 36415; 80053; 80307; 81001; 82550; 83690; 84703; 85025; 87086; 93005; 93010; 96360; 99284; J7030

== ENCOUNTER 2021-05-16 20:27 | Emergency (ER) | payer SELFPAY ==
[2021-05-16 22:34] LABS: Bilirubin,Urine NEG (Negative); Blood,Urine NEG (Negative); Color,Urine Yellow (Yellow); Mucus,Urine FEW /HPF; Protein,Urine <15 mg/dL mg/dL (Negative); Urobilinogen,Urine < 2.0 mg/dL (<2.0)
[2021-05-16 22:35] LABS: HCG Qualitative,Urine Negative (Negative)
[2021-05-16 22:44] LABS: Basophils % (Auto) 0.4 % (0.0-1.8); Eosinophils # (Auto) 0.2 K/mm3 (0.0-0.4); Eosinophils % (Auto) 3.5 % (0.0-4.3); Hematocrit 30.8 % (30.3-42.9); Hemoglobin 9.4 gm/dl (10.1-14.3); Lymphocytes % (Auto) 45.8 % (13.4-35.0); Mean Corpuscular HGB Conc 31 % (30-34); Monocytes # (Auto) 0.5 K/mm3 (0.0-0.8); Monocytes % (Auto) 7.4 % (0.0-7.3); Platelet Count 332 K/mm3 (140-440); Red Blood Count 4.47 M/mm3 (3.65-5.03); Red Cell Distribution Width 18.9 % (13.2-15.2)
[2021-05-16 22:46] LABS: Mean Corpuscular Volume 69 fl (79-97)
[2021-05-16 23:02] LABS: Blood Urea Nitrogen 13 mg/dL (7-17); Calcium 9.7 mg/dL (8.4-10.2); Hemolysis Index 0
[2021-05-16 23:06] LABS: BUN/Creatinine Ratio 26
[2021-05-17] MEDS ORDERED: MORPHINE 4 MG/1 ML INJ IV ONE (00:09)
[2021-05-17] MEDS ORDERED: SODIUM CHLORIDE 0.9% 1000 ML 1,000 ML IV ONE (00:09)
[2021-05-17] MEDS ORDERED: ONDANSETRON 4 MG/2 ML INJ IV ONE (00:09)
--- NOTE | 2021-05-17 00:33 | Emergency Department Report ---
ED Abdominal Pain HPI - General Chief Complaint: Abdominal Pain Stated Complaint: CHEST PAIN/ABDOMINAL PAIN Time Seen by Provider: 05/17/21 00:08 Source: patient Mode of arrival: Ambulatory Limitations: No Limitations - History of Present Illness Initial Comments: Patient 46-year-old -[place] female who presents for left lower quadrant pain x3 days patient states pain radiates from left flank to suprapubic. Pain is rated at 7/10 exacerbated by attempting to void. Patient states nausea denies vomiting. No fevers no chills. There is malaise. Last menstrual cycle 2 weeks ago. Patient does endorse history of diverticulitis. MD Complaint: abdominal pain - Related Data Previous Rx's Medication Instructions Recorded Last Taken Type Penicillin Vk [Veetids TAB] 250 mg PO QID #40 tablet 05/08/17 Unknown Rx traMADoL [Ultram 50 MG tab] 50 mg PO Q6HR PRN #20 tablet 05/08/17 Unknown Rx Ibuprofen [Motrin 800 MG tab] 800 mg PO Q8H PRN #15 tablet 10/17/17 Unknown Rx Naproxen [Naprosyn] 500 mg PO Q12H PRN #20 tablet 01/23/18 Unknown Rx Ondansetron [Zofran Odt] 4 mg PO Q8H PRN #20 tab.rapdis 01/23/18 Unknown Rx Ketorolac [Toradol] 10 mg PO Q6H PRN #12 tablet 05/17/21 Unknown Rx Allergies Allergy/AdvReac Type Severity Reaction Status Date / Time No Known Allergies Allergy Verified 11/12/18 16:47 ED Review of Systems ROS: Stated complaint: CHEST PAIN/ABDOMINAL PAIN Other details as noted in HPI Constitutional: chills, fever, malaise Eyes: denies: eye pain, eye discharge, vision change ENT: denies: ear pain, throat pain Respiratory: orthopnea. denies: cough, shortness of breath, wheezing Cardiovascular: denies: chest pain, palpitations Endocrine: no symptoms reported Gastrointestinal: abdominal pain, nausea. denies: vomiting, diarrhea, constipation, hematemesis, melena Genitourinary: urgency, dysuria, frequency. denies: hematuria, discharge Musculoskeletal: back pain Skin: denies: rash, lesions Neurological: denies: headache, weakness, paresthesias Psychiatric: denies: anxiety, depression Hematological/Lymphatic: denies: easy bleeding, easy bruising ED Past Medical Hx - Past Medical History Previous Medical History?: No - Surgical History Past Surgical History?: No Additional Surgical History: Tubal Ligation - Social History Smoking Status: Never Smoker Substance Use Type: Alcohol, Marijuana - Medications Home Medications: Home Medications Medication Instructions Recorded Confirmed Last Taken Type Penicillin Vk [Veetids TAB] 250 mg PO QID #40 tablet 05/08/17 Unknown Rx traMADoL [Ultram 50 MG tab] 50 mg PO Q6HR PRN #20 tablet 05/08/17 Unknown Rx Ibuprofen [Motrin 800 MG tab] 800 mg PO Q8H PRN #15 tablet 10/17/17 Unknown Rx Naproxen [Naprosyn] 500 mg PO Q12H PRN #20 tablet 01/23/18 Unknown Rx Ondansetron [Zofran Odt] 4 mg PO Q8H PRN #20 tab.rapdis 01/23/18 Unknown Rx Ketorolac [Toradol] 10 mg PO Q6H PRN #12 tablet 05/17/21 Unknown Rx ED Physical Exam - General Limitations: No Limitations General appearance: alert, in no apparent distress - Head Head exam: Present: atraumatic, normocephalic - Eye Eye exam: Present: EOMI Pupils: Present: normal accommodation - ENT ENT exam: Present: mucous membranes moist - Neck Neck exam: Present: normal inspection, full ROM. Absent: tenderness - Respiratory Respiratory exam: Present: normal lung sounds bilaterally. Absent: respiratory distress, wheezes, stridor, chest wall tenderness - Cardiovascular Cardiovascular Exam: Present: regular rate, normal rhythm, normal heart sounds. Absent: systolic murmur, diastolic murmur, rubs, gallop - GI/Abdominal GI/Abdominal exam: Present: soft, normal bowel sounds. Absent: guarding, rebound, rigid, bruit, hernia - Rectal Rectal exam: Present: deferred - Extremities Exam Extremities exam: Present: normal inspection, full ROM, normal capillary refill. Absent: tenderness - Back Exam Back exam: Present: normal inspection, full ROM, CVA tenderness (L). Absent: CVA tenderness (R) - Neurological Exam Neurological exam: Present: alert, oriented X3, normal gait - Psychiatric Psychiatric exam: Present: normal affect, normal mood - Skin Skin exam: Present: warm, dry, intact, normal color. Absent: rash ED Course Vital Signs 05/16/21 21:49 Temperature 98.2 F Pulse Rate 77 Respiratory 16 Rate Blood Pressure 131/77 [Left] O2 Sat by Pulse 100 Oximetry ED Medical Decision Making - Lab Data Result diagrams: 05/16/21 22:15 05/16/21 22:15 Labs 05/16/21 05/16/21 05/16/21 22:15 22:15 22:15 WBC 6.7 RBC 4.47 Hgb 9.4 L Hct 30.8 MCV 69 L MCH 21 L MCHC 31 RDW 18.9 H Plt Count 332 Lymph % (Auto) 45.8 H Pike % (Auto) 7.4 H Eos % (Auto) 3.5 Baso % (Auto) 0.4 Lymph # (Auto) 3.0 Pike # (Auto) 0.5 Eos # (Auto) 0.2 Baso # (Auto) 0.0 Seg Neutrophils % 42.9 Seg Neutrophils # 2.9 Sodium 138 Potassium 4.2 Chloride 105.3 Carbon Dioxide 21 L Anion Gap 16 BUN 13 Creatinine 0.5 L Estimated GFR > 60 BUN/Creatinine Ratio 26 Glucose 99 Calcium 9.7 Total Bilirubin < 0.20 Direct Bilirubin < 0.2 Indirect Bilirubin 0.0 AST 13 ALT 11 Alkaline Phosphatase 49 Total Protein 7.4 Albumin 4.4 Albumin/Globulin Ratio 1.5 Amylase 126 Lipase 44 Urine Color Urine Turbidity Urine pH Ur Specific Sa[place]ier Urine Protein Urine Glucose (UA) Urine Ketones Urine Blood Urine Nitrite Urine Bilirubin Urine Urobilinogen Ur Leukocyte Esterase Urine WBC (Auto) Urine RBC (Auto) U Epithel Cells (Auto) Urine Mucus Urine HCG, Qual 05/16/21 Unknown WBC RBC Hgb Hct MCV MCH MCHC RDW Plt Count Lymph % (Auto) Pike % (Auto) Eos % (Auto) Baso % (Auto) Lymph # (Auto) Pike # (Auto) Eos # (Auto) Baso # (Auto) Seg Neutrophils % Seg Neutrophils # Sodium Potassium Chloride Carbon Dioxide Anion Gap BUN Creatinine Estimated GFR BUN/Creatinine Ratio Glucose Calcium Total Bilirubin Direct Bilirubin Indirect Bilirubin AST ALT Alkaline Phosphatase Total Protein Albumin Albumin/Globulin Ratio Amylase Lipase Urine Color Yellow Urine Turbidity Slightly-cloudy Urine pH 5.0 Ur Specific [place]ier 1.023 Urine Protein <15 mg/dl Urine Glucose (UA) Neg Urine Ketones Neg Urine Blood Neg Urine Nitrite Neg Urine Bilirubin Neg Urine Urobilinogen < 2.0 Ur Leukocyte Esterase Neg Urine WBC (Auto) 1.0 Urine RBC (Auto) 1.0 U Epithel Cells (Auto) 10.0 Urine Mucus Few Urine HCG, Qual Negative - Radiology Data Radiology results: report reviewed, image reviewed CT ABDOMEN AND PELVIS WITH CONTRAST INDICATION / CLINICAL INFORMATION: Pt complains of L.L.Q. abd pain with nausea x 2 weeks.. TECHNIQUE: Axial CT images were obtained through the abdomen and pelvis after 100 cc Omnipaque [address] scans at this location are performed using CT dose reduction for ALARA by means of automated exposure control. COMPARISON: Pelvic ultrasound from 01/23/2018. FINDINGS: LOWER CHEST: No significant abnormality. LIVER: No significant abnormality. BILIARY: The gallbladder is unremarkable. No biliary ductal dilatation. PANCREAS: No significant abnormality. SPLEEN: No significant abnormality. ADRENALS: No significant abnormality. KIDNEYS / URETERS: There are bilateral renal cysts without suspicious features measuring up to 7 mm along the mid pole of the right kidney and 1 cm along the midpole of the left kidney. Multiple nonobstructive right renal stones measure up to 2-3 mm. No ureteral stones or hydroureteronephrosis. GI TRACT: No significant abnormality of the stomach, small bowel or colon. The appendix is unremarkable. PERITONEUM: No free fluid. No free air. No fluid collection. LYMPH NODES: No significant adenopathy. VASCULATURE: No significant abnormality. URINARY BLADDER: No significant abnormality. REPRODUCTIVE ORGANS: The uterus is enlarged and contains multiple probable fibroids measuring up to 4.3 cm along the uterine fundus to the right of midline on image 131 of series 2. No significant adnexal abnormality. ADDITIONAL FINDINGS: None. BONES: No significant abnormality. IMPRESSION: 1. No acute findings. 2. Additional findings as above. Signer Name: Karl Davies MD Signed: 05/17/2021 1:29 AM Workstation Name: [id number] Transcribed By: MARTHA Dictated By: Karl Davies MD Electronically Authenticated By: Karl Davies MD Signed Date/Time: 05/17/21 0129 - Medical Decision Making T abdomen pelvis multiple nonobstructive renal stones right, multiple fibroids, plan DC to home, no pyelonephritis, no elevated white count, follow-up with primary care doctor in 2 to 3 days. Follow-up with urology. Hydrate as directed, return to emergency should symptoms worsen. Critical care attestation.: If time is entered above; I have spent that time in minutes in the direct care of this critically ill patient, excluding procedure time. ED Disposition Clinical Impression: Kidney stones Uterine fibroid Qualifiers: Uterine leiomyoma location: unspecified location Qualified Code(s): D25.9 - Leiomyoma of uterus, unspecified Disposition: HOME / SELF CARE / HOMELESS Is pt being admited?: No Does the pt Need Aspirin: No Condition: Stable Instructions: Abdominal Pain (ED), Uterine Fibroids, [id number], Kidney Ston es, [id number], Low-Purine Eating Plan Additional Instructions: Take medications as prescribed, hydrate as directed, follow-up with your doctor in 2 to 3 days. Follow-up with urology as directed. Follow-up with your [facility] doctor as directed. Return to emergency department should symptoms worsen. Prescriptions: Ketorolac [Toradol] 10 mg PO Q6H PRN #12 tablet PRN Reason: Pain Referrals: PRIMARY CAREMD [Primary Care Provider] - 3-5 Days LUIS EDUARDO ALMANZAR MD [Staff Physician] - 3-5 Days SAURABH PLUNKETT MD [Staff Physician] - 3-5 Days DEANGELO BUENO MD [Staff Physician] - 3-5 Days Forms: Work/School Release Form(ED) Time of Disposition: 04:04
--- NOTE | 2021-05-17 01:33 | Cat Scan Report ---
CT ABDOMEN AND PELVIS WITH CONTRAST INDICATION / CLINICAL INFORMATION: Pt complains of L.L.Q. abd pain with nausea x 2 weeks.. TECHNIQUE: Axial CT images were obtained through the abdomen and pelvis after 100 cc Omnipaque [address] scans at this location are performed using CT dose reduction for ALARA by means of automated exposure control. COMPARISON: Pelvic ultrasound from 01/23/2018. FINDINGS: LOWER CHEST: No significant abnormality. LIVER: No significant abnormality. BILIARY: The gallbladder is unremarkable. No biliary ductal dilatation. PANCREAS: No significant abnormality. SPLEEN: No significant abnormality. ADRENALS: No significant abnormality. KIDNEYS / URETERS: There are bilateral renal cysts without suspicious features measuring up to 7 mm a long the mid pole of the right kidney and 1 cm along the midpole of the left kidney. Multiple nonobst ructive right renal stones measure up to 2-3 mm. No ureteral stones or hydroureteronephrosis. GI TRACT: No significant abnormality of the stomach, small bowel or colon. The appendix is unremarkab le. PERITONEUM: No free fluid. No free air. No fluid collection. LYMPH NODES: No significant adenopathy. VASCULATURE: No significant abnormality. URINARY BLADDER: No significant abnormality. REPRODUCTIVE ORGANS: The uterus is enlarged and contains multiple probable fibroids measuring up to 4 .3 cm along the uterine fundus to the right of midline on image 131 of series 2. No significant adnex al abnormality. ADDITIONAL FINDINGS: None. BONES: No significant abnormality. IMPRESSION: 1. No acute findings. 2. Additional findings as above. Signer Name: Karl Davies MD Signed: 05/17/2021 1:29 AM Workstation Name: [id number]
[2021-05-17 02:25] LABS: Alanine Aminotransferase 11 units/L (7-56); Albumin 4.4 g/dL (3.9-5)
[2021-05-17 02:40] LABS: Bilirubin,Direct < 0.2 mg/dL (0-0.2)
[2021-05-17 05:03] VITALS: BP 130/84
== END 2021-05-17 05:01 | disposition home or self-care (01) ==
LOC: ED 20:27
DX: N20.0 Calculus of kidney (principal); D25.9 Leiomyoma of uterus, unspecified; F12.10 Cannabis abuse, uncomplicated
CPT/HCPCS: 36415; 74177; 80048; 80076; 81001; 81025; 82150; 83690; 85025; 96361; 96374; 96375; 99284; J2270; J2405; J7030; Q9967; Q0162